=== PATIENT | female | born 1990 | race African-American/Black ===

== ENCOUNTER 2017-08-09 16:42 | Emergency (ER) | payer OTHER ==
[~2017-08-09] VITALS: Ht 165.1 cm; Wt 80.2 kg
[~2017-08-09 16:42] MED LIST: CHERATUSSIN AC473 ML PO; FIORICET 50-301 EACH PO; MOTRIN800 MG PO; MUCUS RELIEF; PROAIR HFA8.5 GM IH; RANITIDINE HCL150 MG PO; ULTRAM50 MG PO; ZOFRAN4 MG PO; ZYRTEC10 M2 PO
[2017-08-09 17:26] LABS: HEMATOCRIT 43.3 % (36.0-46.0); HEMOGLOBIN 14.9 G/DL (11.9-15.5); MCH 30.1 PG (29.0-34.0); MCHC 34.4 G/DL (30.0-36.0); MCV 87.5 FL (83-99); PLATELET COUNT 316 K/uL (156-360); RBC DIS.WIDTH-CV 15.6 % (11.8-14.6); RBC DIS.WIDTH-SD 49.6 % (39-53); RED BLOOD COUNT 4.95 M/uL (3.80-5.20); WHITE BLOOD COUNT 9.5 K/uL (4.1-10.2)
[2017-08-09 17:47] LABS: ALBUMIN 3.9 g/dL (3.2-4.8)
[2017-08-09 17:48] LABS: CHLORIDE 104 mEq/L (99-109); POTASSIUM 3.7 mEq/L (3.7-5.4); SODIUM 138 mEq/L (136-147)
[2017-08-09 17:50] LABS: GLUCOSE 90 mg/dL (70-99); TOTAL PROTEIN 7.4 g/dL (6.4-8.3)
[2017-08-09 17:52] LABS: TOTAL BILIRUBIN 0.4 mg/dL (0.0-1.0)
[2017-08-09 17:52] LABS: APPEARANCE SL.HAZY ((CLEAR)); BILIRUBIN NEGATIVE; BLOOD NEGATIVE; COLOR YELLOW ((YELLOW)); GLUCOSE (STRIP) NEGATIVE; KETONES 5; LEUKOCYTES NEGATIVE; NITRITE NEGATIVE; PROTEIN (STRIP) NEGATIVE; SPECIFIC GRAVITY 1.019 (1.000-1.030); UROBILINOGEN 0.2 MG/DL (0.2-1.0)
[2017-08-09 17:54] LABS: ALKALINE PHOSPHATASE 46 IU/L (3-129); CREATININE 0.8 mg/dL (0.6-1.3); GFR ESTIMATE (CALCULATED) > 59 mL/min/
[2017-08-09 17:55] LABS: AST (GOT) 19 IU/L (2-34); UREA NITROGEN (BUN) 6 mg/dL (9-23)
[2017-08-09 17:56] LABS: ALT (GPT) 12 IU/L (3-49)
[2017-08-09 18:09] LABS: BACTERIA RARE /HPF; CALCIUM OXALATE CRYSTALS 1+ /HPF; EPITHELIAL CELLS 2+ /HPF; MUCUS TRACE /LPF; RED BLOOD CELLS 0-5 /HPF (0-5); UCUL ADDED? NO; WHITE BLOOD CELLS 0-5 /HPF (0-5)
[2017-08-09 18:23] LABS: LIPASE 27 U/L (1.0-51.0)
[2017-08-09 18:24] LABS: QUANTITATIVE HCG 127668.2 MIU/ML
[2017-08-09] MEDS ORDERED: ZOFRAN4 MG SL (20:37)
[2017-08-09 20:45] VITALS: BP 120/64
== END 2017-08-09 22:35 | disposition home or self-care (01) ==
LOC: EME 16:42
DX: O21.9 Vomiting of pregnancy, unspecified (principal); O99.511 Diseases of the respiratory system complicating pregnancy, first trimester; J45.909 Unspecified asthma, uncomplicated; O99.331 Smoking (tobacco) complicating pregnancy, first trimester; F17.200 Nicotine dependence, unspecified, uncomplicated; Z3A.08 8 weeks gestation of pregnancy; Z88.0 Allergy status to penicillin
CPT/HCPCS: 76801; 80053; 81003; 83690; 84702; 85027; 99281; 99284; J2405; J7030